=== PATIENT | female | born 1980 | race Native Hawaiian/Other Pacific Islander ===

== ENCOUNTER 2018-10-19 15:50 | Outpatient (CLI) | payer OTHER | END 2018-10-19 15:53 | disposition short-term general hospital (02) | LOC: AMB 15:50 | DX: R51 Headache (principal); S01.01XA Laceration without foreign body of scalp, initial encounter; M54.2 Cervicalgia; V89.2XXA Person injured in unspecified motor-vehicle accident, traffic, initial encounter; Y92.413 State road as the place of occurrence of the external cause | CPT/HCPCS: A0425; A0429 ==

== ENCOUNTER 2018-10-19 15:56 | Emergency (ER) | payer OTHER ==
[~2018-10-19] VITALS: Ht 160 cm; Wt 113.4 kg
[2018-10-19 20:45] VITALS: BP 145/80; TEMP 98.5
== END 2018-10-19 20:46 | disposition home or self-care (01) ==
LOC: ED 16:00
PROC: 0HQ0XZZ Repair Scalp Skin, External Approach (ICD-10-PCS; principal; 2018-10-19)
DX: S01.01XA Laceration without foreign body of scalp, initial encounter (principal); M50.222 Other cervical disc displacement at C5-C6 level; V79.50XA Passenger on bus injured in collision with unspecified motor vehicles in traffic accident, initial encounter
CPT/HCPCS: 96372; 99283; J1885